=== PATIENT | female | born 1990 | race African-American/Black ===

== ENCOUNTER 2024-10-09 04:35 | Inpatient (IN) | payer OTHER ==
[2024-10-09 06:02] VITALS: BMI 43.0
[2024-10-09] MEDS: LACTATED RINGERS SOLUTION 1,000 ML/1,000 ML INFUS.BAG IV SCH (06:20)
[2024-10-09 06:49] LABS: BASO % 0.1 % (0-2.0); EOS % 0.2 % (0-4.5); HEMATOCRIT 35.6 % (32.4-45.2); HEMOGLOBIN 11.8 GM/dL (10.7-15.3); LYMPH % 14.8 % (8-40); MCH 29.5 pg (25.7-33.7); MCHC 33.1 g/dl (32.0-36.0); MEAN CELL VOLUME 89.1 fl (80-96); MEAN PLT VOLUME 8.8 fl (7.5-11.1); MONO % 7.8 % (3.8-10.2); NEUT % 77.1 % (42.8-82.8); PLATELET COUNT 253 10^3/uL (134-434); RBC 3.99 M/mm3 (3.60-5.2); RDW 15.3 % (11.6-15.6); WHITE BLOOD COUNT 16.6 K/mm3 (4.0-10.0)
[2024-10-09 06:59] LABS: ACTIVATED PTT 28.4 SECONDS (25.2-36.5)
[2024-10-09 07:13] LABS: BLOOD UREA NITROGEN 7.3 mg/dL (7-18); CALCIUM 9.6 mg/dL (8.5-10.1)
[2024-10-09 07:16] LABS: CREATININE 0.6 mg/dL (0.55-1.3)
[2024-10-09] MEDS ORDERED: OXYTOCIN 30 UNITS in 0.9% NS 30 UNIT/500 ML INFUS.BAG IVPB ONE (10:22)
[2024-10-09] MEDS: OXYTOCIN 30 UNITS in 0.9% NS 30 UNIT/500 ML INFUS.BAG IVPB SCH (10:32)
[2024-10-09] MEDS ORDERED: FENTANYL/BUPIVACAINE/NS/PF - PCEA - 50 ML DISP.SYRIN EP ONE ×2 (11:34→16:59)
[2024-10-09] MEDS: FENTANYL/BUPIVACAINE/NS/PF - PCEA - 50 ML DISP.SYRIN EP SCH (12:20)
[2024-10-09] MEDS ORDERED: NALOXONE HCL 0.4 MG/ML VIAL IVPUSH PRN (15:06)
[2024-10-09 16:14] LABS: HIV INTERPRETATION NEGATIVE (NEGATIVE)
[2024-10-09] MEDS ORDERED: ONDANSETRON 4 MG/2 ML VIAL ONE (19:12)
[2024-10-09] MEDS ORDERED: PHENYLEPHRINE HCL 10 MG/1 ML SINGLE DOSE VIAL ONE (19:12)
[2024-10-09] MEDS ORDERED: FENTANYL CITRATE/PF 50 MCG/ML VIAL ONE (19:12)
[2024-10-09] MEDS ORDERED: OXYTOCIN 10 UNITS/ML VIAL ONE (19:12)
[2024-10-09] MEDS ORDERED: KETOROLAC TROMETHAMINE 30 MG/1 ML VIAL ONE (19:12)
[2024-10-09] MEDS ORDERED: morphine SULFATE/PF 1 MG/2 ML (2cc Syringe - QUVA) ONE (19:12)
[2024-10-09] MEDS: CITRIC ACID/SODIUM CITRATE 30 ML UNIT-DOSE CUP PO ONE (19:15)
[2024-10-09] MEDS ORDERED: MIDAZOLAM HCL 2 MG/2 ML SINGLE DOSE VIAL ONE (19:58)
[2024-10-09 20:56] LABS: CORD PCO2 101.9 mmHg (30-78)
[2024-10-09 20:56] LABS: CORD HCO3 20.2 mmHg (20-29); CORD PCO2 113.8 mmHg (30-78)
[2024-10-09] MEDS ORDERED: SENNOSIDES/DOCUSATE COMBO (SENNA PLUS) TABLET (UD) PO PRN (20:58)
[2024-10-09] MEDS ORDERED: IBUPROFEN 800 MG/8 ML IJ IVPB PRN (20:58)
[2024-10-09] MEDS ORDERED: METHYLERGONOVINE MALEATE 0.2 MG/1 ML AMP IM PRN (20:58)
[2024-10-09] MEDS: OXYTOCIN 20 UNITS in 0.9% NS 20 UNIT/1,000 ML INFUS.BAG IV SCH (21:00)
[2024-10-09 21:08] LABS: CORD pH 6.786 (7.14-7.44)
[2024-10-09 21:09] LABS: CORD pH 6.866 (7.14-7.44)
[2024-10-09] MEDS ORDERED: OXYTOCIN 20 UNITS in 0.9% NS 20 UNIT/1,000 ML INFUS.BAG IV ONE (21:29)
[2024-10-10] MEDS: BUTORPHANOL TARTRATE 2 MG/ML VIAL IVPB ONE (02:39)
[2024-10-10] MEDS: PROMETHAZINE HCL 25 MG/1 ML VIAL IVPB ONE (02:39)
[2024-10-10] MEDS: METHYLERGONOVINE MALEATE 0.2 MG/1 ML AMP IM ONE (02:39)
[2024-10-10] MEDS: ACETAMINOPHEN 1000 MG/100 ML BAG IVPB PRN (06:08)
[2024-10-10 07:44] LABS: HEMATOCRIT 34.4 % (32.4-45.2); HEMOGLOBIN 11.2 GM/dL (10.7-15.3); MCH 29.4 pg (25.7-33.7); MCHC 32.5 g/dl (32.0-36.0); MEAN CELL VOLUME 90.2 fl (80-96); MEAN PLT VOLUME 8.5 fl (7.5-11.1); PLATELET COUNT 228 10^3/uL (134-434); RBC 3.82 M/mm3 (3.60-5.2); RDW 15.3 % (11.6-15.6); WHITE BLOOD COUNT 25.3 K/mm3 (4.0-10.0)
[2024-10-10 08:32] VITALS: RESP 18
[2024-10-10] MEDS ORDERED: oxyCODONE HCL 5 MG TABLET PO PRN ×2 (08:58)
[2024-10-10] MEDS: PRENATAL VITAMINS W/ FOLIC ACID TABLET (FP) PO SCH (09:36)
[2024-10-10] MEDS: FERROUS SO4 325 MG TABLET (FP) PO SCH (09:36)
[2024-10-10 11:41] LABS: ANISOCYTOSIS 1+; MACROCYTOSIS 0
[2024-10-10] MEDS: IBUPROFEN 600 MG TABLET (FP) PO PRN (13:56)
[2024-10-11 00:19] VITALS: TEMP 98.2
[2024-10-11] MEDS: ACETAMINOPHEN 325 MG TABLET (FP) PO PRN (02:39)
[2024-10-11 08:05] LABS: HEMATOCRIT 32.6 % (32.4-45.2); HEMOGLOBIN 10.6 GM/dL (10.7-15.3); MCH 29.3 pg (25.7-33.7); MCHC 32.7 g/dl (32.0-36.0); MEAN CELL VOLUME 89.6 fl (80-96); MEAN PLT VOLUME 8.5 fl (7.5-11.1); PLATELET COUNT 241 10^3/uL (134-434); RBC 3.64 M/mm3 (3.60-5.2); RDW 15.4 % (11.6-15.6); WHITE BLOOD COUNT 21.3 K/mm3 (4.0-10.0)
[2024-10-11 10:48] VITALS: BP 128/84; PULSE 121
[2024-10-11] MEDS: SIMETHICONE 80 MG TAB.CHEW (FP) PO PRN (13:02)
[2024-10-11] MEDS: BISACODYL 10 MG SUPP.RECT RC PRN (13:27)
== END 2024-10-11 16:22 | disposition home or self-care (01) | DRG 540 ==
LOC: JDEL 04:35 → JLDR 05:25 → J3W 23:59
PROVIDERS: ADMIT Obstetrics & Gynecology; ATTEND Obstetrics & Gynecology
PROC: 10D00Z1 Extraction of Products of Conception, Low, Open Approach (ICD-10-PCS; principal; 2024-10-09)
DX: O41.03X0 Oligohydramnios, third trimester, not applicable or unspecified (principal); O48.0 Post-term pregnancy; O66.40 Failed trial of labor, unspecified; Z3A.40 40 weeks gestation of pregnancy; Z37.0 Single live birth
CPT/HCPCS: 36415; 36600; 80048; 82803; 85025; 85610; 85730; 86762; 86780; 86850; 86900; 86901; 87340; 87389; 88307-TC; 94010; J0131